=== PATIENT | male | born 1970 | race Caucasian/White ===

== ENCOUNTER 2016-09-04 11:11 | Outpatient (CLI) | payer BC ==
[2016-09-04 12:10] LABS: Bilirubin Negative (Negative); Blood, Urine Negative (Negative); Glucose, Urine (Dipstick) Negative (Negative); Ketone, Urine Negative (Negative); Nitrite Negative (Negative); Protein, Urine (Dipstick) Negative (Neg-Trace); Urobilinogen 0.2 mg/dL (0.2-1.0)
[2016-09-04 12:16] LABS: ALT (SGPT) 27 U/L (0-55); AST (SGOT) 17 U/L (5-34); Alkaline Phosphatase 56 U/L (40-150); Anion Gap 12 mmol/L (10-20); BUN (Urea Nitrogen) 15 mg/dL (8.9-20.6); Bilirubin, Total 0.5 mg/dL (0.2-1.2); Calc. Creatinine Clearance 0 mL/min (70-130); Calcium 9.1 mg/dL (7.8-10.44); Carbon Dioxide 22 mmol/L (22-29); Chloride 110 mmol/L (98-107); Estimated GFR-MDRD Greater than 90; Globulin 2.9 g/dL (2.4-3.5); LDL Cholesterol, Calculated 112 mg/dL
[2016-09-04 12:23] LABS: Bacteria/HPF None Seen HPF (None Seen); Squamous Epithelial 0-3 HPF (0-3); WBC/HPF 0-3 HPF (0-3)
[2016-09-04 13:03] LABS: Band 1 % (5-11); Hematocrit 45.4 % (42.0-52.0); Mean Platelet Volume 8.1 fL (7.4-10.4); Neutrophil 51 % (42-75); Reactive Lymphocytes 2 % (0-10); Red Blood Cell (RBC) Count 5.27 mill/uL (4.70-6.10); White Blood Cell (WBC) Count 5.2 thou/uL (4.8-10.8)
[2016-09-04 18:24] LABS: Sex Hormone Binding Globulin 13.5 nmol/L (11-78); Testosterone, Free 67.5 pg/mL (47-244); Testosterone, Total 225.2 ng/dL (240-871)
== END 2016-09-04 11:12 | disposition home or self-care (01) ==
LOC: NAV LAB 11:11
PROVIDERS: ATTEND Family Medicine
DX: Z00.00 Encounter for general adult medical examination without abnormal findings (principal); Z12.5 Encounter for screening for malignant neoplasm of prostate; E29.1 Testicular hypofunction
CPT/HCPCS: 80053; 80061; 81001; 84270; 84403; 85025; G0103

== ENCOUNTER 2017-04-09 08:04 | Outpatient (CLI) | payer BC ==
[2017-04-09 09:30] LABS: ALT (SGPT) 33 U/L (8-55); AST (SGOT) 22 U/L (5-34); Albumin 4.6 g/dL (3.5-5.0); Alkaline Phosphatase 69 U/L (40-150); Anion Gap 15 mmol/L (10-20); BUN (Urea Nitrogen) 21 mg/dL (8.9-20.6); Bilirubin, Total 0.6 mg/dL (0.2-1.2); Calc. Creatinine Clearance 0 mL/min (70-130); Calcium 9.7 mg/dL (7.8-10.44); Carbon Dioxide 22 mmol/L (22-29); Cardiac Risk 7.5 (Less than 4.5); Chloride 107 mmol/L (98-107); Cholesterol 218 mg/dl (< 200 Desired); Estimated GFR-MDRD 71; Glucose 113 mg/dL (70-105); HDL Cholesterol 29 mg/dL (>60 Neg Risk); Potassium 4.2 mmol/L (3.5-5.1); Protein, Total 7.6 g/dL (6.0-8.3); Sodium 140 mmol/L (136-145); Triglycerides 451 mg/dL (Less than 150)
== END 2017-04-09 08:05 | disposition home or self-care (01) ==
LOC: NAV LAB 08:04
PROVIDERS: ATTEND Family Medicine
DX: E78.5 Hyperlipidemia, unspecified (principal)
CPT/HCPCS: 36415; 80053; 80061

== ENCOUNTER 2018-10-28 07:35 | Emergency (ER) | payer BC | END 2018-10-28 08:15 | disposition home or self-care (01) | LOC: NAV ERS 07:35 | DX: S46.911A Strain of unspecified muscle, fascia and tendon at shoulder and upper arm level, right arm, initial encounter (principal); S90.32XA Contusion of left foot, initial encounter; I25.10 Atherosclerotic heart disease of native coronary artery without angina pectoris; E78.5 Hyperlipidemia, unspecified; I10 Essential (primary) hypertension; F41.9 Anxiety disorder, unspecified; Z87.891 Personal history of nicotine dependence; Z79.899 Other long term (current) drug therapy; W01.190A Fall on same level from slipping, tripping and stumbling with subsequent striking against furniture, initial encounter | CPT/HCPCS: 99281 ==

== ENCOUNTER 2019-03-30 07:59 | Outpatient (CLI) | payer BC | END 2019-03-30 08:00 | disposition home or self-care (01) | LOC: NAV ULT 07:59 | PROVIDERS: ATTEND Family Medicine | DX: R60.9 Edema, unspecified (principal); I08.8 Other rheumatic multiple valve diseases | CPT/HCPCS: 93306 ==

== ENCOUNTER 2019-11-26 20:18 | Emergency (ER) | payer BC | END 2019-11-26 20:50 | disposition home or self-care (01) | LOC: NAV ERS 20:18 | DX: R07.89 Other chest pain (principal); R05 Cough; I10 Essential (primary) hypertension; E78.00 Pure hypercholesterolemia, unspecified; I25.10 Atherosclerotic heart disease of native coronary artery without angina pectoris; E78.5 Hyperlipidemia, unspecified; Z79.899 Other long term (current) drug therapy | CPT/HCPCS: 93005 ==

== ENCOUNTER 2020-03-28 20:28 | Emergency (ER) | payer BC, OTHER, SELFPAY ==
[2020-03-29 17:33] LABS: SARS-CoV-2 MS2 Positive; SARS-CoV-2 N Gene Negative; SARS-CoV-2 S Gene Negative; SARS-CoV-2 by NAA Not Detected (NotDetected); SARS-CoV-2 orf1ab Negative
== END 2020-03-28 21:08 | disposition home or self-care (01) ==
LOC: NAV ERS 20:28
DX: R05 Cough (principal); R53.1 Weakness; R06.02 Shortness of breath; Z20.828 Contact with and (suspected) exposure to other viral communicable diseases; I10 Essential (primary) hypertension; F41.9 Anxiety disorder, unspecified; E78.5 Hyperlipidemia, unspecified; E78.00 Pure hypercholesterolemia, unspecified; Z79.899 Other long term (current) drug therapy
CPT/HCPCS: 87635; 99284; U0003

== ENCOUNTER 2020-03-31 20:40 | Emergency (ER) | payer SELFPAY ==
[2020-03-31] MEDS ORDERED: Aspirin Chewable 81 MG TAB ONE (21:09)
[2020-03-31 21:58] LABS: #Eosinphils 0.1 thou/uL (0.0-0.7); #Monocytes 0.2 thou/uL (0.11-0.59); #Neutrophils 3.7 thou/uL (1.40-6.50); %Basophils 0.8 % (0.0-1.0); %Lymphocytes 19.9 % (21.0-51.0); %Monocytes 4.6 % (0.0-10.0); %Neutrophils 72.8 % (42.0-75.0); Hemoglobin 14.4 g/dL (14.0-18.0); Mean Corpuscular HGB CONC 32.1 g/dL (32.0-36.0); Mean Corpuscular Hemoglobin 27.7 pg (27.0-31.0); Mean Corpuscular Volume 86.3 fL (78.0-98.0); Mean Platelet Volume 8.4 fL (7.4-10.4); Platelet Count 246 thou/uL (130-400); RBC Distribution Width 12.8 % (11.5-14.5); Red Blood Cell (RBC) Count 5.21 mill/uL (4.70-6.10); White Blood Cell (WBC) Count 5.1 thou/uL (4.8-10.8)
[2020-03-31 22:14] LABS: ALT (SGPT) 67 U/L (8-55); AST (SGOT) 63 U/L (5-34); Albumin 4.4 g/dL (3.5-5.0); Alkaline Phosphatase 61 U/L (40-110); Anion Gap 16 mmol/L (10-20); BUN (Urea Nitrogen) 16 mg/dL (8.9-20.6); Bilirubin, Total 0.4 mg/dL (0.2-1.2); CK (CPK) 60 U/L (30-200); Calc. Creatinine Clearance 0 mL/min (70-130); Calcium 8.9 mg/dL (7.8-10.44); Carbon Dioxide 20 mmol/L (22-29); Chloride 104 mmol/L (98-107); Estimated GFR-MDRD 56; Globulin 3.2 g/dL (2.4-3.5); Glucose 132 mg/dL (70-105); Lipase 22 U/L (8-78); Potassium 4.1 mmol/L (3.5-5.1); Protein, Total 7.6 g/dL (6.0-8.3); Sodium 136 mmol/L (136-145)
--- NOTE | 2020-03-31 22:36 | RAD ---
EXAM: CHEST ONE VIEW HISTORY: Intermittent chest pressure and heaviness for last 3-4 days. Chest pain. Cough. COMPARISON: 05/26/2018 FINDINGS: The cardiac silhouette and pulmonary vasculature are within normal limits. The lungs are clear. The o sseous structures are intact. IMPRESSION: No acute cardiopulmonary process.
== END 2020-03-31 22:45 | disposition home or self-care (01) ==
LOC: NAV ERS 20:40
DX: R07.9 Chest pain, unspecified (principal); E78.5 Hyperlipidemia, unspecified; E78.00 Pure hypercholesterolemia, unspecified; I10 Essential (primary) hypertension; F41.9 Anxiety disorder, unspecified; Z79.899 Other long term (current) drug therapy
CPT/HCPCS: 71045; 80053; 82550; 83690; 84484; 85025; 93005

== ENCOUNTER 2020-10-17 15:46 | Emergency (ER) | payer BC, SELFPAY ==
[2020-10-17 16:35] LABS: #Basophils 0.1 thou/uL (0.0-0.2); #Eosinphils 0.1 thou/uL (0.0-0.7); #Lymphocytes 0.9 thou/uL (1.20-3.40); #Monocytes 0.3 thou/uL (0.11-0.59); #Neutrophils 3.5 thou/uL (1.40-6.50); %Basophils 1.2 % (0.0-1.0); %Eosinophils 1.7 % (0.0-10.0); %Lymphocytes 19.3 % (21.0-51.0); %Monocytes 5.1 % (0.0-10.0); %Neutrophils 72.7 % (42.0-75.0); Hemoglobin 14.1 g/dL (14.0-18.0); Mean Corpuscular HGB CONC 33.6 g/dL (32.0-36.0); Mean Corpuscular Hemoglobin 29.2 pg (27.0-31.0); Mean Corpuscular Volume 86.9 fL (78.0-98.0); Mean Platelet Volume 8.4 fL (7.4-10.4); Platelet Count 245 thou/uL (130-400); RBC Distribution Width 12.8 % (11.5-14.5); Red Blood Cell (RBC) Count 4.82 mill/uL (4.70-6.10); White Blood Cell (WBC) Count 4.8 thou/uL (4.8-10.8)
--- NOTE | 2020-10-17 16:35 | RAD ---
EXAM: Chest 2 views: HISTORY: Chest pain COMPARISON: 04/04/2019 FINDINGS: There is a normal-sized cardiomediastinal silhouette. There is no evidence of consolidation, mass, or pleural effusion. Degenerative changes are seen in the spine. IMPRESSION: No evidence of acute cardiopulmonary disease
[2020-10-17 16:46] LABS: Bilirubin Negative (Negative); Blood, Urine Negative (Negative); Clarity SL HAZY (Clear); Glucose, Urine (Dipstick) Negative (Negative); Ketone, Urine Negative (Negative); Leukocyte Negative (Negative); Nitrite Negative (Negative); Protein, Urine (Dipstick) Trace mg/dL (Neg-Trace); Specific Gravity, Urine 1.031 (1.002-1.036); Urobilinogen 0.2 mg/dL (Less than 2); pH, Urine 5.5 (5.0-9.0)
[2020-10-17 16:48] LABS: ALT (SGPT) 48 U/L (8-55); AST (SGOT) 37 U/L (5-34); Albumin 4.1 g/dL (3.5-5.0); Alkaline Phosphatase 71 U/L (40-110); Anion Gap 14 mmol/L (10-20); BUN (Urea Nitrogen) 14 mg/dL (8.9-20.6); Bilirubin, Total 0.4 mg/dL (0.2-1.2); Calc. Creatinine Clearance 0 mL/min (70-130); Calcium 8.7 mg/dL (7.8-10.44); Carbon Dioxide 21 mmol/L (22-29); Chloride 105 mmol/L (98-107); Globulin 2.6 g/dL (2.4-3.5); Glucose 124 mg/dL (70-105); Potassium 3.8 mmol/L (3.5-5.1); Protein, Total 6.7 g/dL (6.0-8.3); Sodium 136 mmol/L (136-145)
== END 2020-10-17 19:50 | disposition home or self-care (01) ==
LOC: NAV ERS 15:46
DX: R07.2 Precordial pain (principal); F41.1 Generalized anxiety disorder; E66.01 Morbid (severe) obesity due to excess calories; I10 Essential (primary) hypertension; E78.00 Pure hypercholesterolemia, unspecified; E78.5 Hyperlipidemia, unspecified; Z87.891 Personal history of nicotine dependence; Z79.899 Other long term (current) drug therapy
CPT/HCPCS: 71046; 80053; 81003; 83880; 84484; 85025; 85379; 93005; 94760

== ENCOUNTER 2021-06-13 07:32 | Emergency (ER) | payer SELFPAY ==
[2021-06-13 08:35] LABS: #Basophils 0.1 thou/uL (0.0-0.2); #Eosinphils 0.1 thou/uL (0.0-0.7); #Lymphocytes 1.1 thou/uL (1.20-3.40); #Monocytes 0.4 thou/uL (0.11-0.59); #Neutrophils 3.7 thou/uL (1.40-6.50); %Basophils 1.5 % (0.0-1.0); %Lymphocytes 20.6 % (21.0-51.0); %Monocytes 6.5 % (0.0-10.0); %Neutrophils 69.4 % (42.0-75.0); Hemoglobin 13.9 g/dL (14.0-18.0); Mean Corpuscular HGB CONC 32.7 g/dL (32.0-36.0); Mean Corpuscular Volume 88.7 fL (78.0-98.0); Mean Platelet Volume 8.2 fL (7.4-10.4); Platelet Count 306 thou/uL (130-400); RBC Distribution Width 13.4 % (11.5-14.5); Red Blood Cell (RBC) Count 4.79 mill/uL (4.70-6.10); White Blood Cell (WBC) Count 5.4 thou/uL (4.8-10.8)
[2021-06-13] MEDS ORDERED: Nitroglycerin 0.4 MG TAB (25 Tab Bottle) ONE (08:44)
[2021-06-13] MEDS ORDERED: Aspirin Chewable 81 MG TAB ONE (08:44)
[2021-06-13 08:51] LABS: ALT (SGPT) 58 U/L (8-55); AST (SGOT) 39 U/L (5-34); Alkaline Phosphatase 62 U/L (40-110); Anion Gap 12 mmol/L (10-20); BUN (Urea Nitrogen) 20 mg/dL (8.9-20.6); Bilirubin, Total 0.5 mg/dL (0.2-1.2); Calc. Creatinine Clearance 0 mL/min (70-130); Calcium 9.2 mg/dL (7.8-10.44); Carbon Dioxide 20 mmol/L (22-29); Chloride 107 mmol/L (98-107); Globulin 2.9 g/dL (2.4-3.5); Glucose 151 mg/dL (70-105); Protein, Total 6.9 g/dL (6.0-8.3); Sodium 135 mmol/L (136-145)
[2021-06-13 09:14] LABS: Bilirubin Negative (Negative); Blood, Urine Negative (Negative); Clarity Clear (Clear); Glucose, Urine (Dipstick) Negative (Negative); Ketone, Urine Negative (Negative); Leukocyte Negative (Negative); Nitrite Negative (Negative); Protein, Urine (Dipstick) Negative (Neg-Trace); Urobilinogen 0.2 mg/dL (Less than 2)
[2021-06-13 09:15] LABS: Specific Gravity, Urine 1.005 (1.002-1.036)
[2021-06-13 11:18] LABS: Troponin I Less than 0.010 ng/mL (< 0.028)
== END 2021-06-13 12:00 | disposition home or self-care (01) ==
LOC: NAV ERS 07:32
DX: R07.89 Other chest pain (principal); E66.9 Obesity, unspecified; I10 Essential (primary) hypertension; E78.5 Hyperlipidemia, unspecified; E78.00 Pure hypercholesterolemia, unspecified
CPT/HCPCS: 71045; 80053; 81003; 84484; 85025; 93005; 94760

== ENCOUNTER 2023-05-11 20:03 | Emergency (ER) | payer SELFPAY ==
[2023-05-11 20:40] LABS: #Basophils 0.1 thou/uL (0.0-0.2); #Eosinphils 0.1 thou/uL (0.0-0.7); #Lymphocytes 0.9 thou/uL (1.20-3.40); #Monocytes 0.3 thou/uL (0.11-0.59); #Neutrophils 4.3 thou/uL (1.40-6.50); %Basophils 1.1 % (0.0-1.0); %Eosinophils 1.8 % (0.0-10.0); %Lymphocytes 16.2 % (21.0-51.0); %Monocytes 4.6 % (0.0-10.0); %Neutrophils 76.3 % (42.0-75.0); Hematocrit 39.5 % (42.0-52.0); Hemoglobin 13.2 g/dL (14.0-18.0); Mean Corpuscular HGB CONC 33.5 g/dL (32.0-36.0); Mean Corpuscular Hemoglobin 30.2 pg (27.0-31.0); Mean Corpuscular Volume 90.1 fl (78.0-98.0); Mean Platelet Volume 7.3 fL (7.4-10.4); Platelet Count 434 10x3/uL (130-400); RBC Distribution Width 13.1 % (11.5-14.5); Red Blood Cell (RBC) Count 4.38 mill/uL (4.70-6.10); White Blood Cell (WBC) Count 5.7 10x3/uL (4.8-10.8)
[2023-05-11 20:56] LABS: ALT (SGPT) 54 U/L (8-55); AST (SGOT) 35 U/L (5-34); Albumin 4.5 g/dL (3.5-5.0); Alkaline Phosphatase 44 U/L (40-110); Anion Gap 16 mmol/L (10-20); BUN (Urea Nitrogen) 18 mg/dL (8.4-25.7); Bilirubin, Total 0.5 mg/dL (0.2-1.2); Calc. Creatinine Clearance 0 mL/min (70-130); Calcium 9.6 mg/dL (7.8-10.44); Carbon Dioxide 21 mmol/L (22-29); Chloride 109 mmol/L (98-107); Estimated GFR 63; Globulin 2.3 g/dL (2.4-3.5); Glucose 141 mg/dL (70-105); Potassium 3.5 mmol/L (3.5-5.1); Protein, Total 6.8 g/dL (6.0-8.3); Sodium 142 mmol/L (136-145)
[2023-05-11 20:57] LABS: Troponin I Less than 0.010 ng/mL (< 0.028)
[2023-05-11 23:54] LABS: Troponin I Less than 0.010 ng/mL (< 0.028)
== END 2023-05-12 00:20 | disposition home or self-care (01) ==
LOC: NAV ERS 20:03
DX: M54.6 Pain in thoracic spine (principal); I10 Essential (primary) hypertension; I25.2 Old myocardial infarction; Z79.82 Long term (current) use of aspirin; Z87.891 Personal history of nicotine dependence
CPT/HCPCS: 36415; 80053; 84484; 85025; 93005

== ENCOUNTER 2023-06-08 20:13 | Emergency (ER) | payer SELFPAY ==
[2023-06-08 20:39] LABS: #Basophils 0.1 thou/uL (0.0-0.2); #Eosinphils 0.1 thou/uL (0.0-0.7); #Monocytes 0.3 thou/uL (0.11-0.59); #Neutrophils 3.4 thou/uL (1.40-6.50); %Basophils 1.8 % (0.0-1.0); %Eosinophils 2.4 % (0.0-10.0); %Lymphocytes 20.6 % (21.0-51.0); %Monocytes 5.9 % (0.0-10.0); %Neutrophils 69.3 % (42.0-75.0); Hematocrit 41.2 % (42.0-52.0); Hemoglobin 13.7 g/dL (14.0-18.0); Mean Corpuscular HGB CONC 33.2 g/dL (32.0-36.0); Mean Corpuscular Hemoglobin 29.5 pg (27.0-31.0); Mean Corpuscular Volume 88.9 fl (78.0-98.0); Mean Platelet Volume 7.5 fL (7.4-10.4); Platelet Count 382 10x3/uL (130-400); RBC Distribution Width 12.8 % (11.5-14.5); Red Blood Cell (RBC) Count 4.64 mill/uL (4.70-6.10); White Blood Cell (WBC) Count 4.9 10x3/uL (4.8-10.8)
[2023-06-08] MEDS ORDERED: Aspirin Chewable 81 MG TAB ONE (20:46)
[2023-06-08 20:57] LABS: ALT (SGPT) 42 U/L (8-55); AST (SGOT) 28 U/L (5-34); Albumin 4.6 g/dL (3.5-5.0); Alkaline Phosphatase 39 U/L (40-110); Anion Gap 16 mmol/L (10-20); BUN (Urea Nitrogen) 21 mg/dL (8.4-25.7); Bilirubin, Total 0.6 mg/dL (0.2-1.2); Calc. Creatinine Clearance 0 mL/min (70-130); Calcium 9.3 mg/dL (7.8-10.44); Carbon Dioxide 21 mmol/L (22-29); Chloride 109 mmol/L (98-107); Estimated GFR 54; Globulin 2.4 g/dL (2.4-3.5); Glucose 128 mg/dL (70-105); Potassium 3.9 mmol/L (3.5-5.1); Sodium 142 mmol/L (136-145)
[2023-06-08 21:01] LABS: Troponin I 0.011 ng/mL (< 0.028)
[2023-06-08 23:43] LABS: Troponin I 0.041 ng/mL (< 0.028)
== END 2023-06-08 23:57 | disposition short-term general hospital (02) ==
LOC: NAV ERS 20:13
DX: I21.4 Non-ST elevation (NSTEMI) myocardial infarction (principal); I25.10 Atherosclerotic heart disease of native coronary artery without angina pectoris; I10 Essential (primary) hypertension; E78.5 Hyperlipidemia, unspecified; K21.9 Gastro-esophageal reflux disease without esophagitis; Z87.891 Personal history of nicotine dependence; Z79.82 Long term (current) use of aspirin; Z79.01 Long term (current) use of anticoagulants; Z79.899 Other long term (current) drug therapy
CPT/HCPCS: 36415; 71046; 80053; 84484; 85025; 93005; 96372; J1650

== ENCOUNTER 2024-09-13 15:50 | Emergency (ER) | payer OTHER, SELFPAY | END 2024-09-13 18:50 | disposition home or self-care (01) | LOC: NAV ERS 15:50 | DX: J10.1 Influenza due to other identified influenza virus with other respiratory manifestations (principal); J20.8 Acute bronchitis due to other specified organisms; I10 Essential (primary) hypertension; Z87.891 Personal history of nicotine dependence | CPT/HCPCS: 71046; 87428; 94640 ==

== ENCOUNTER 2025-06-26 12:22 | Outpatient (CLI) | payer OTHER ==
[2025-06-26 13:35] LABS: ALT (SGPT) 54 U/L (Less than 45); AST (SGOT) 41 U/L (11-34); Albumin 4.6 g/dL (3.1-4.5); Alkaline Phosphatase 44 U/L (40-110); Anion Gap 15 mmol/L (10-20); BUN (Urea Nitrogen) 29 mg/dL (8.4-25.7); Bilirubin, Total 0.9 mg/dL (0.3-1.2); Calc. Creatinine Clearance 0 mL/min (70-130); Calcium 8.7 mg/dL (7.8-10.44); Carbon Dioxide 20 mmol/L (22-29); Cardiac Risk 6.3 (Less than 4.5); Chloride 105 mmol/L (98-107); Cholesterol 132 mg/dl (< 200 Desired); Globulin 2.5 g/dL (2.4-3.5); Glucose 129 mg/dL (70-105); HDL Cholesterol 21 mg/dL (>60 Neg Risk); Potassium 4.0 mmol/L (3.5-5.1); Sodium 136 mmol/L (136-145); Triglycerides 534 mg/dL (Less than 150)
== END 2025-06-26 12:23 | disposition home or self-care (01) ==
LOC: NAV LAB 12:22
PROVIDERS: ATTEND Family Medicine
DX: E78.5 Hyperlipidemia, unspecified (principal); R73.09 Other abnormal glucose
CPT/HCPCS: 80053; 80061; 83036